=== PATIENT | female | born 1990 | race Hispanic/Latino ===

== ENCOUNTER 2021-08-14 18:30 | Inpatient (IN) | payer OTHER ==
[2021-08-14] MEDS ORDERED: hydrALAZINE 20 MG/ML VIAL SLOW IVP PRN ×2 (18:50→20:42)
[2021-08-14] MEDS ORDERED: Acetaminophen 500 MG TAB PO PRN (19:28)
[2021-08-14 19:39] VITALS: BMI 30.2
[2021-08-14 20:05] LABS: #Neutrophils 7.4 10x3/uL (1.5-8.4); %Basophils 0.4 % (0.0-2.0); %Eosinophils 0.4 % (0.0-6.0); %Lymphocytes 15.4 % (18.0-47.0); %Monocytes 9.8 % (0.0-10.0); %Neutrophils 73.7 % (40.0-75.0); Hemoglobin 10.6 g/dL (12.0-15.5); Mean Corpuscular HGB CONC 33.2 g/dL (32.0-36.0); Mean Corpuscular Volume 87.4 fl (81.6-98.3); Mean Platelet Volume 9.8 fl (7.4-10.4); Platelet Count 251 10x3/uL (150-450); RBC Distribution Width 11.7 % (11.5-14.5); Red Blood Cell (RBC) Count 3.65 10x6/uL (3.90-5.03)
[2021-08-14 20:20] LABS: ALT (SGPT) 8 U/L (8-55); AST (SGOT) 11 U/L (5-34); Albumin 3.3 g/dL (3.5-5.0); Alkaline Phosphatase 73 U/L (40-110); Anion Gap 14 mmol/L (10-20); BUN (Urea Nitrogen) 11 mg/dL (7.0-18.7); Bilirubin, Total 0.3 mg/dL (0.2-1.2); Calc. Creatinine Clearance 142 mL/min (70-130); Calcium 7.8 mg/dL (7.8-10.44); Carbon Dioxide 18 mmol/L (22-29); Chloride 106 mmol/L (98-107); Globulin 3.3 g/dL (2.4-3.5); Glucose 86 mg/dL (70-105); Potassium 3.9 mmol/L (3.5-5.1); Protein, Total 6.6 g/dL (6.0-8.3); Sodium 134 mmol/L (136-145)
[2021-08-14 20:26] LABS: Bilirubin Neg (Negative); Blood, Urine 250 (Negative); Clarity Cloudy (Clear); Glucose, Urine (Dipstick) 100 mg/dL (Negative); Ketone, Urine Negative (Negative); Leukocyte 100 (Negative); Nitrite Positive (Negative); Protein, Urine (Dipstick) 30 mg/dl (Neg-Trace); Urobilinogen Normal mg/dL (Less than 2)
[2021-08-14 20:38] LABS: Bacteria/HPF 4+ HPF (None Seen); Squamous Epithelial 0-3 HPF (0-3); WBC/HPF 21-50 HPF (0-3)
[2021-08-14 20:39] LABS: Urine Culture Reflex Yes Yes
[2021-08-14] MEDS ORDERED: Ondansetron PF 4 MG/2 ML Vial IVP PRN (20:42)
[2021-08-14] MEDS: Acetaminophen 325 MG TAB PO PRN (20:44)
[2021-08-14 21:08] LABS: SARS-CoV-2 NAA Rapid Test DETECTED (NotDetected)
[2021-08-14] MEDS: cefTRIAXone\\ROCEPHIN 1 GM in Sodium Chloride 0.9% 100 ML IVPB SCH (22:00)
[2021-08-15] MEDS: Acetaminophen 325 MG TAB PO PRN ×3 (02:00→15:11)
[2021-08-15] MEDS: Lactated Ringer's 1,000 ML IV SCH ×3 (06:04→23:01)
[2021-08-15] MEDS: cefTRIAXone\\ROCEPHIN 1 GM in Sodium Chloride 0.9% 100 ML IVPB SCH (20:35)
[2021-08-16] MEDS: Lactated Ringer's 1,000 ML IV SCH ×2 (10:52→13:47)
[2021-08-16 11:18] VITALS: BP 100/51; TEMP 97.6
== END 2021-08-16 14:00 | disposition home or self-care (01) | DRG 831 ==
LOC: CSHLD/OP 18:30 → CSHLD 23:56 → CSHANTE 23:58
PROVIDERS: ADMIT Obstetrics & Gynecology; ATTEND Obstetrics & Gynecology
DX: O23.03 Infections of kidney in pregnancy, third trimester (principal); U07.1 COVID-19; O98.513 Other viral diseases complicating pregnancy, third trimester; Z3A.30 30 weeks gestation of pregnancy; O34.211 Maternal care for low transverse scar from previous cesarean delivery; O99.613 Diseases of the digestive system complicating pregnancy, third trimester; K21.9 Gastro-esophageal reflux disease without esophagitis
CPT/HCPCS: 0240U; 36415; 51701; 80053; 81001; 85025; 87077; 87086; 87186; 99285; J0696; J3490; J7120

== ENCOUNTER 2021-10-11 08:47 | Outpatient (CLI) | payer OTHER ==
[2021-10-11 22:18] LABS: SARS-CoV-2 PCR by NAA DETECTED (NotDetected)
== END 2021-10-11 08:48 | disposition home or self-care (01) ==
LOC: CSHLAB 08:47
PROVIDERS: ATTEND Obstetrics & Gynecology
DX: U07.1 COVID-19 (principal)
CPT/HCPCS: U0003; U0005